=== PATIENT | male | born 1975 | race Hispanic/Latino ===

== ENCOUNTER 2018-10-20 01:39 | Emergency (ER) | payer BC ==
[2018-10-20] MEDS ORDERED: HYDROcodone/Acetaminophen 5/325 mg Tablet ONE (02:42)
--- NOTE | 2018-10-20 08:15 | RAD ---
3 VIEWS RIGHT ANKLE: Date: 10/20/18 COMPARISON: None. HISTORY: Joint pain and soft tissue swelling. History of out. FINDINGS: Three views of the right ankle show moderate lateral soft tissue swelling. There is no evidence of fr acture or dislocation. No degenerative changes are seen. No osseous erosions are seen. IMPRESSION: No evidence of acute osseous abnormality. POS: [facility]
== END 2018-10-20 03:36 | disposition home or self-care (01) ==
LOC: ERS 01:39
DX: M10.9 Gout, unspecified (principal)
CPT/HCPCS: 36415; 84550